=== PATIENT | female | born 1995 | race Caucasian/White ===

== ENCOUNTER 2017-07-27 18:07 | Emergency (ER) | payer OTHER ==
[~2017-07-27] VITALS: Ht 170.2 cm; Wt 103.2 kg
[2017-07-27 19:15] LABS: HEMATOCRIT 40.9 % (36.0-46.0); MCH 28.6 PG (29.0-34.0); MCV 84.2 FL (83-99); MEAN PLAT.VOLUME 11.5 uM^3 (9.5-12.4); PLATELET COUNT 283 K/uL (156-360); RBC DIS.WIDTH-CV 13.2 % (11.8-14.6); RBC DIS.WIDTH-SD 40.7 % (39-53); RED BLOOD COUNT 4.86 M/uL (3.80-5.20); WHITE BLOOD COUNT 10.3 K/uL (4.1-10.2)
[2017-07-27 19:34] LABS: CHLORIDE 108 mEq/L (99-109); POTASSIUM 3.7 mEq/L (3.7-5.4); SODIUM 137 mEq/L (136-147)
[2017-07-27 19:36] LABS: GLUCOSE 140 mg/dL (70-99)
[2017-07-27 19:38] LABS: ANION GAP 9 MEQ/L (2-14)
[2017-07-27 19:40] LABS: GFR ESTIMATE (CALCULATED) > 59 mL/min/
[2017-07-27 19:41] LABS: UREA NITROGEN (BUN) 9 mg/dL (9-23)
[2017-07-27 20:54] VITALS: BP 118/78
== END 2017-07-27 20:55 | disposition home or self-care (01) ==
LOC: RME 18:07 → EME 18:07 → RME 20:55
DX: R06.02 Shortness of breath (principal); F41.9 Anxiety disorder, unspecified
CPT/HCPCS: 71020; 80048; 85027; 99281; 99284